=== PATIENT | female | born 1955 | race Hispanic/Latino ===

== ENCOUNTER 2017-05-13 18:07 | Observation (INO) | payer SELFPAY ==
[~2017-05-13] VITALS: Ht 165.1 cm; Wt 81.3 kg
[~2017-05-13 18:07] MED LIST: ACCUPRIL5 MG; BACTRIM DS1 TAB PO; CIPROFLOXACN500 MG PO; GLIPIZIDE10 MG PO; LISINOPRIL20 MG PO; METFORMIN500 MG PO
--- NOTE | 2017-05-13 18:08 | NUR ---
PT AMBULATED TO ER ROOM 10. CHANGED INTO GOWN. IV ESTABLISHED. EKG COMPLETE.
--- NOTE | 2017-05-13 18:45 | NUR ---
REPORT TO ADELA LINARES FOR CONTINUED CARE
--- NOTE | 2017-05-13 18:53 | NUR ---
PATIENT AMBULATES TO BATHROOM WITH STEADY GAIT. URINE SAMPLE OBTAINED. REPORTS CHEST PAIN 5/10 AT THIS TIME. FAMILY AT BEDSIDE, CALL LIGHT WITHIN REACH. INFORMED TO CALL FOR ASSISTANCE. WILL CONTINUE TO MONITOR.
[2017-05-13 19:03] LABS: HEMATOCRIT 46.8 % (37.0-47.0); HEMOGLOBIN 15.8 g/dl (12.0-16.0); IMMATURE GRANULOCYTES 0.2 % (0.0-1.0); MEAN CELL VOLUME 89.5 fL CALC (80.0-100.0); MEAN CORPUSCULAR HGB 30.2 pG CALC (26.0-32.0); MEAN CORPUSCULAR HGB CONC 33.8 g/L CALC (32.0-36.0); NEUT# 5.12 thou/uL (2.00-7.15); RED BLOOD COUNT 5.23 mill/uL (4.20-5.60)
[2017-05-13 19:16] LABS: URINE BILIRUBIN - DIPSTICK NEGATIVE (NEGATIVE); URINE BLOOD DIPSTICK NEGATIVE (NEGATIVE); URINE COLOR YELLOW; URINE GLUCOSE - DIPSTICK >=1000 mg/dL (NEGATIVE); URINE KETONE TRACE mg/dL (NEGATIVE); URINE LEUK ESTERASE NEGATIVE (NEGATIVE); URINE NITRITE - DIPSTICK NEGATIVE (Negative); URINE PROTEIN - DIPSTICK NEGATIVE (NEG-TRACE); URINE UROBILINOGEN - DIPSTICK 0.2 E.U./dL (0.2)
[2017-05-13 19:25] LABS: ALBUMIN 4.6 g/dL (3.2-5.0); ALKALINE PHOSPHATASE 151 u/l (38-126); AMYLASE 33 u/l (30-110); BUN 17 mg/dL (7-17); BUN/CREATININE RATIO 27 (12-20 (CALC)); CARBON DIOXIDE 24 mmol/l (22-30); CHLORIDE 93 mmol/l (95-108); CREATININE 0.6 mg/dL (0.5-1.0); GFR > 60 ML/MIN (>=60 (CALC)); GFR FOR AFR.AMER. > 60 ML/MIN (>=60 (CALC)); LIPASE 176 u/l (23-300); SGOT/AST 26 u/l (14-36); SGPT/ALT 31 u/l (9-52); SODIUM 135 mmol/l (137-146); TOTAL PROTEIN 7.9 g/dL (6.3-8.2)
--- NOTE | 2017-05-13 19:25 | NUR ---
BEDSIDE REPORT GIVEN TO VIJAY CRAIG. CARE RELINQUISHED.
--- NOTE | 2017-05-13 19:26 | NUR ---
IN ROOM INTRODUCED SELF TO PT. NO C/O AT THIS TIME.
[2017-05-13 19:28] LABS: ANION GAP 23 (6-22 (CALC)); POTASSIUM 5.3 mmol/l (3.5-5.1)
[2017-05-13 19:38] LABS: MYOGLOBIN 9 ng/mL (0 - 62)
[2017-05-13 19:51] LABS: URINE CLARITY CLEAR
--- NOTE | 2017-05-13 20:09 | NUR ---
IV INSULIN GIVEN PER MD ORDER.
--- NOTE | 2017-05-13 20:41 | NUR ---
Admission Note Report Given to: SHIRA LINARES Transported by: Wheelchair X Stretcher Transported with: X Nurse Transporter X Patent IV X O2 X Packaging Sales Representative
--- NOTE | 2017-05-13 20:45 | NUR ---
PT. TAKEN TO [facility] FLOOR VIA STRETCHER, IN STABLE CONDITION.
--- NOTE | 2017-05-13 20:50 | NUR ---
PT.ARRIVED TO THE FLOOR VIA STRETCHER ACCOMPANIED BY VIJAY NAGEL OF ED. PT.APPEARS TO BE IN STABLE CONDITION AT THIS TIME. PT.IS BEING ORIENTED TO ROOM,CALL SYSTEM,LIGHTS,BED AND TV. ACCU-CHECK IS 300 UPON ARRIVING TO THE FLOOR, ED REPORTS HAVING ADMINISTERED 5UN OF NOVOLOG JUST BEFORE BRINGING PT UP TO FLOOR/WILL CONTINUE TO MONITOR. PT.IS REQUSTING FOOD AT THIS TIME, STATING SHE WAS NOT FED IN THE ED AT ALL AND IS HUNGRY. V/S ARE BEING ASSESSED AT THIS TIME AND PT.ASSESSED. LUNG SOUNDS ARE CLEAR, ABD SOFT/NON-TENDER, PT.REPORTS BM YESTERDAY,BUT THAT SHE HAS BEEN HAVING DIFFICULTY WITH CONSTIPATION. NO VISIBLE WOUNDS OR EDEMA NOTED AT THIS TIME. PT.DENIES ANY WOUNDS AT THIS TIME. SON IS AT BEDSIDE AND IS INTERPRETING FOR PT. 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 PT.ALSO REPORTS HAVING WEAKNESS AND DIZZINESS RECENTLY SO SHE HAS BEEN INSTRUCTED TO CALL FOR ASSISTANCE BEFORE AMBULATING OR USING THE RESTROOM. CALL LIGHT POSITIONED AT BEDSIDE W/IN REACH ALONG W/BEDSIDE TABLE. BED IN LOWEST POSITION.
[2017-05-14 00:20] VITALS: BP 132/84
--- NOTE | 2017-05-14 00:25 | NUR ---
V/S ASSESSED AT THIS TIME, PT.C/O HEADACHE, NITRO PATCH REMOVED AND PT.INSTRUCTED TO CALL IF RAMOS DOES NOT IMPROVE OR SHE EXPERIENCES ANY CHEST PAIN. CALL LIGHT IS W/IN REACH, WILL CONTINUE TO MONITOR.
--- NOTE | 2017-05-14 02:35 | NUR ---
LOW LIGHTS ARE ON TO ROOM, PT.APPEARS TO BE SLEEPING AT THIS TIME. NO S/S OF DISTRESS. CALL LIGHT IS ON BST W/IN REACH
[2017-05-14 05:10] VITALS: BP 124/68
--- NOTE | 2017-05-14 07:00 | NUR ---
BEDSIDE REPORT RECEIVED BY BHUPENDRA. PT IS RESTING IN BED AND DENIES NEEDS AT THIS TIME. CALL LIGHT IN REACH.
--- NOTE | 2017-05-14 07:10 | NUR ---
REPORT GIVEN TO DAY NURSE, PT.IS SLEEPING W/LIGHTS OUT AT THIS TIME, AWOKE TO OUR ENTERING ROOM. CALL LIGHT IS AT BEDSIDE W/IN REACH
[2017-05-14 07:22] VITALS: BP 137/61
--- NOTE | 2017-05-14 08:03 | NUR ---
ASSESSMENT DONE AND TELE IN PLACE. RESPS EVEN AND UNLABORED. HOT PACK GIVEN TO PT FOR HER RIGHT LEG FOR COMFORT. PT DENIES NEEDS AT THIS TIME. SAFETY PRECAUTIONS REINFORCED. CALL LIGHT IN REACH.
--- NOTE | 2017-05-14 11:16 | NUR ---
NOTIFIED DR. MARTI RE: PT ACCU OF 405 AND ORDERS RECIEVED.
--- NOTE | 2017-05-14 12:00 | NUR ---
PT IS SITTING IN THE SIDE OF THE BED EATING HER LUNCH. PT DENIES NEEDS AT THIS TIME. CALL LIGHT IN REACH. FAMILY IN ROOM.
[2017-05-14 12:30] VITALS: BP 134/69
--- NOTE | 2017-05-14 16:00 | NUR ---
PT IS RESTING IN BED WITH NO S/S OF DISTRESS NOTED. PT DENIES NEEDS. PT STATED THAT SHE IS WAITING FOR DOCTOR TO COME. TOLD PT DOCTOR SHOULD BE COMING SOON. FAMILY IN ROOM.
[2017-05-14 16:20] VITALS: BP 137/84
--- NOTE | 2017-05-14 17:40 | NUR ---
DR. DESIR IN ROOM TO ASSESS PT AND ORDERS RECEIVED.
[2017-05-14 18:09] LABS: HEMATOCRIT 45.9 % (37.0-47.0); HEMOGLOBIN 15.4 g/dl (12.0-16.0); IMMATURE GRANULOCYTES 0.3 % (0.0-1.0); MEAN CELL VOLUME 89.5 fL CALC (80.0-100.0); MEAN CORPUSCULAR HGB CONC 33.6 g/L CALC (32.0-36.0); NEUT# 3.22 thou/uL (2.00-7.15); RED BLOOD COUNT 5.13 mill/uL (4.20-5.60); RED CELL DISTRI WIDTH 11.9 % (11.5-15.5)
[2017-05-14 18:52] LABS: ALBUMIN 3.9 g/dL (3.2-5.0); ALKALINE PHOSPHATASE 114 u/l (38-126); ANION GAP 17 (6-22 (CALC)); BILIRUBIN, TOTAL 0.7 mg/dL (0.0-1.4); BUN 16 mg/dL (7-17); BUN/CREATININE RATIO 36 (12-20 (CALC)); CARBON DIOXIDE 30 mmol/l (22-30); CHLORIDE 95 mmol/l (95-108); CREATININE 0.4 mg/dL (0.5-1.0); GFR > 60 ML/MIN (>=60 (CALC)); GFR FOR AFR.AMER. > 60 ML/MIN (>=60 (CALC)); POTASSIUM 4.5 mmol/l (3.5-5.1); SGOT/AST 10 u/l (14-36); SGPT/ALT 30 u/l (9-52); SODIUM 137 mmol/l (137-146); TOTAL PROTEIN 6.8 g/dL (6.3-8.2)
--- NOTE | 2017-05-14 19:07 | NUR ---
Discharge instructions given. Patient verbalizes understanding of same.
--- NOTE | 2017-05-14 19:20 | NUR ---
Discharge instructions given. Patient verbalizes understanding of same. Discharged in stable condition via Ambulatory to Home with family. All belongings sent with pt.
== END 2017-05-14 19:20 | disposition home or self-care (01) | DRG 313 ==
LOC: ED 18:07 → ED-I 19:30 → ED 20:09 → MS2 20:10
PROVIDERS: Emergency Medicine; ADMIT Hospitalist; ATTEND Hospitalist
DX: R07.89 Other chest pain (principal); E87.5 Hyperkalemia; E11.65 Type 2 diabetes mellitus with hyperglycemia; I10 Essential (primary) hypertension; Z79.82 Long term (current) use of aspirin
CPT/HCPCS: G0378

== ENCOUNTER 2017-12-20 10:53 | Emergency (ER) | payer OTHER ==
[~2017-12-20] VITALS: Ht 165.1 cm; Wt 68.2 kg
[2017-12-20] MEDS ORDERED: IBUPROFEN600 MG PO (12:35)
[2017-12-20 12:40] VITALS: BP 147/73
== END 2017-12-20 12:40 | disposition home or self-care (01) ==
LOC: ED 10:53
DX: M17.12 Unilateral primary osteoarthritis, left knee (principal); M25.562 Pain in left knee

== ENCOUNTER 2020-08-19 15:59 | Inpatient (IN) | payer MEDICARE, MEDICAID ==
[~2020-08-19] VITALS: Ht 165.1 cm; Wt 76.0 kg
[~2020-08-19 15:59] MED LIST changes: +GLIPIZIDE10 M3 PO; -GLIPIZIDE10 MG PO; +IBUPROFEN600 MG PO
[2020-08-19 17:43] LABS: URINE BILIRUBIN - DIPSTICK NEGATIVE (NEGATIVE); URINE BLOOD DIPSTICK NEGATIVE (NEGATIVE); URINE COLOR YELLOW; URINE GLUCOSE - DIPSTICK >=1000 mg/dL (NEGATIVE); URINE KETONE NEGATIVE (NEGATIVE); URINE LEUK ESTERASE NEGATIVE (NEGATIVE); URINE PH 6.5 (4.5-8.0); URINE PROTEIN - DIPSTICK TRACE mg/dL (NEG-TRACE); URINE SPECIFIC GRAVITY 1.015
[2020-08-19 17:46] LABS: HEMATOCRIT 42.8 % (37.0-47.0); HEMOGLOBIN 13.9 g/dl (12.0-16.0); IMMATURE GRANULOCYTES 0.2 % (0.0-5.0); MEAN CELL VOLUME 90.5 fL CALC (80.0-100.0); MEAN CORPUSCULAR HGB 29.4 pG CALC (26.0-32.0); MEAN CORPUSCULAR HGB CONC 32.5 g/dL CAL (32.0-36.0); NEUT# 7.43 thou/uL (2.00-7.15); RED BLOOD COUNT 4.73 mill/uL (4.20-5.60); RED CELL DISTRI WIDTH 12.8 % (11.5-15.5)
[2020-08-19 17:52] LABS: URINE NITRITE - DIPSTICK NEGATIVE (Negative)
[2020-08-19 17:59] LABS: ALBUMIN 4.3 g/dL (3.2-5.0); ALKALINE PHOSPHATASE 135 u/l (38-126); ANION GAP 17 (6-22 (CALC)); BILIRUBIN, TOTAL 0.7 mg/dL (0.0-1.4); BUN 9 mg/dL (8-23); BUN/CREATININE RATIO 18 (12-20 (CALC)); CARBON DIOXIDE 27 mmol/l (22-30); CHLORIDE 95 mmol/l (95-108); CREATININE 0.5 mg/dL (0.5-1.0); GFR > 60 ML/MIN (>=60 (CALC)); GFR FOR AFR.AMER. > 60 ML/MIN (>=60 (CALC)); POTASSIUM 4.1 mmol/l (3.5-5.1); SODIUM 135 mmol/l (137-146)
[2020-08-19 18:00] LABS: SGOT/AST 20 u/l (9-36); TOTAL PROTEIN 8.4 g/dL (6.3-8.2)
[2020-08-19 20:00] VITALS: BP 167/82
[2020-08-20] VITALS (11 sets, daily range): BP systolic 149–185; BP diastolic 66–89
[2020-08-20] MEDS ORDERED: LEVEMIR FL100 UNIT/M SC (08:55)
[2020-08-20] MEDS ORDERED: BENZONATATE200 MG PO (08:56)
[2020-08-20] MEDS ORDERED: GABAPENTIN300 M2 PO (08:58)
[2020-08-20] MEDS ORDERED: FARXIGA5 MG PO (08:59)
[2020-08-20] MEDS ORDERED: [UNRECOGNIZED DRUG - SUPPLY] (09:00)
[2020-08-20] MEDS ORDERED: LOSARTAN POTASS50 MG PO (10:29)
[2020-08-21] VITALS (7 sets, daily range): BP systolic 144–185; BP diastolic 69–88
[2020-08-21 05:00] LABS: HEMATOCRIT 39.6 % (37.0-47.0); HEMOGLOBIN 12.5 g/dl (12.0-16.0); IMMATURE GRANULOCYTES 1.8 % (0.0-5.0); MEAN CELL VOLUME 91.7 fL CALC (80.0-100.0); MEAN CORPUSCULAR HGB 28.9 pG CALC (26.0-32.0); MEAN CORPUSCULAR HGB CONC 31.6 g/dL CAL (32.0-36.0); NEUT# 8.3 thou/uL (2.00-7.15); RED BLOOD COUNT 4.32 mill/uL (4.20-5.60)
[2020-08-21 05:20] LABS: ALKALINE PHOSPHATASE 118 u/l (38-126); BILIRUBIN, TOTAL 0.5 mg/dL (0.0-1.4); BUN 7 mg/dL (8-23); BUN/CREATININE RATIO 20 (12-20 (CALC)); CHLORIDE 102 mmol/l (95-108); CREATININE 0.3 mg/dL (0.5-1.0); GFR > 60 ML/MIN (>=60 (CALC)); GFR FOR AFR.AMER. > 60 ML/MIN (>=60 (CALC)); POTASSIUM 4.1 mmol/l (3.5-5.1); SGOT/AST 18 u/l (9-36); SODIUM 134 mmol/l (137-146)
[2020-08-21 05:32] LABS: ALBUMIN 3.3 g/dL (3.2-5.0); ANION GAP 19 (6-22 (CALC)); CARBON DIOXIDE 17 mmol/l (22-30); TOTAL PROTEIN 6.4 g/dL (6.3-8.2)
[2020-08-22] VITALS (8 sets, daily range): BP systolic 118–184; BP diastolic 63–85
[2020-08-22 05:14] LABS: HEMATOCRIT 33.9 % (37.0-47.0); IMMATURE GRANULOCYTES 1.6 % (0.0-5.0); MEAN CELL VOLUME 89.9 fL CALC (80.0-100.0); MEAN CORPUSCULAR HGB 29.2 pG CALC (26.0-32.0); MEAN CORPUSCULAR HGB CONC 32.4 g/dL CAL (32.0-36.0); NEUT# 2.57 thou/uL (2.00-7.15); RED BLOOD COUNT 3.77 mill/uL (4.20-5.60); RED CELL DISTRI WIDTH 12.9 % (11.5-15.5)
[2020-08-22 05:29] LABS: ALBUMIN 2.9 g/dL (3.2-5.0); ALKALINE PHOSPHATASE 94 u/l (38-126); BILIRUBIN, TOTAL 0.3 mg/dL (0.0-1.4); BUN 10 mg/dL (8-23); BUN/CREATININE RATIO 28 (12-20 (CALC)); CHLORIDE 102 mmol/l (95-108); CREATININE 0.4 mg/dL (0.5-1.0); GFR > 60 ML/MIN (>=60 (CALC)); GFR FOR AFR.AMER. > 60 ML/MIN (>=60 (CALC)); POTASSIUM 3.5 mmol/l (3.5-5.1); SGOT/AST 19 u/l (9-36); SODIUM 134 mmol/l (137-146); TOTAL PROTEIN 5.9 g/dL (6.3-8.2)
[2020-08-22 05:31] LABS: ANION GAP 10 (6-22 (CALC)); CARBON DIOXIDE 26 mmol/l (22-30)
[2020-08-23] VITALS (8 sets, daily range): BP systolic 142–187; BP diastolic 56–79
[2020-08-23 05:39] LABS: HEMATOCRIT 37.9 % (37.0-47.0); HEMOGLOBIN 12.2 g/dl (12.0-16.0); IMMATURE GRANULOCYTES 1.3 % (0.0-5.0); MEAN CELL VOLUME 89.8 fL CALC (80.0-100.0); MEAN CORPUSCULAR HGB 28.9 pG CALC (26.0-32.0); MEAN CORPUSCULAR HGB CONC 32.2 g/dL CAL (32.0-36.0); NEUT# 2.32 thou/uL (2.00-7.15); RED BLOOD COUNT 4.22 mill/uL (4.20-5.60)
[2020-08-23 05:47] LABS: ALBUMIN 3.4 g/dL (3.2-5.0); ALKALINE PHOSPHATASE 101 u/l (38-126); ANION GAP 13 (6-22 (CALC)); BILIRUBIN, TOTAL 0.3 mg/dL (0.0-1.4); BUN 9 mg/dL (8-23); BUN/CREATININE RATIO 29 (12-20 (CALC)); C-REACTIVE PROTEIN 4.9 mg/dL (0-0.9); CARBON DIOXIDE 28 mmol/l (22-30); CHLORIDE 100 mmol/l (95-108); CREATININE 0.3 mg/dL (0.5-1.0); GFR > 60 ML/MIN (>=60 (CALC)); GFR FOR AFR.AMER. > 60 ML/MIN (>=60 (CALC)); SGOT/AST 18 u/l (9-36); SODIUM 137 mmol/l (137-146); TOTAL PROTEIN 6.6 g/dL (6.3-8.2)
[2020-08-24] VITALS (8 sets, daily range): BP systolic 135–184; BP diastolic 58–86
[2020-08-25 03:49] VITALS: BP 140/70
[2020-08-25 05:58] LABS: HEMATOCRIT 34.5 % (37.0-47.0); HEMOGLOBIN 11.4 g/dl (12.0-16.0); IMMATURE GRANULOCYTES 1.7 % (0.0-5.0); MEAN CELL VOLUME 89.8 fL CALC (80.0-100.0); MEAN CORPUSCULAR HGB 29.7 pG CALC (26.0-32.0); NEUT# 2.16 thou/uL (2.00-7.15); RED BLOOD COUNT 3.84 mill/uL (4.20-5.60); RED CELL DISTRI WIDTH 13.2 % (11.5-15.5)
[2020-08-25 06:10] LABS: ANION GAP 11 (6-22 (CALC)); BUN 11 mg/dL (8-23); BUN/CREATININE RATIO 30 (12-20 (CALC)); CARBON DIOXIDE 27 mmol/l (22-30); CHLORIDE 100 mmol/l (95-108); CREATININE 0.4 mg/dL (0.5-1.0); GFR > 60 ML/MIN (>=60 (CALC)); GFR FOR AFR.AMER. > 60 ML/MIN (>=60 (CALC)); SODIUM 134 mmol/l (137-146)
[2020-08-25 08:15] VITALS: BP 189/75
[2020-08-25 12:00] VITALS: BP 165/75
[2020-08-25] MEDS ORDERED: LEVAQUIN750 M1 PO (12:28)
[2020-08-25] MEDS ORDERED: NORVASC10 M1 PO (12:36)
[2020-08-25 16:22] VITALS: BP 168/60
== END 2020-08-25 16:55 | disposition home or self-care (01) | DRG 179 ==
LOC: ED 15:59 → ED-I 17:12 → ED 18:39 → MS2 18:40
PROVIDERS: Emergency Medicine; Internal Medicine; Nurse Practitioner; ADMIT Internal Medicine; ATTEND Internal Medicine
DX: J15.1 Pneumonia due to Pseudomonas (principal); R09.02 Hypoxemia; J98.4 Other disorders of lung; I10 Essential (primary) hypertension; E11.9 Type 2 diabetes mellitus without complications; Z79.84 Long term (current) use of oral hypoglycemic drugs; Z20.822 Contact with and (suspected) exposure to COVID-19
CPT/HCPCS: Q3014; Q9967

== ENCOUNTER 2023-10-28 10:28 | Emergency (ER) | payer MEDICARE, MEDICAID ==
[~2023-10-28] VITALS: Ht 165.1 cm; Wt 70.5 kg
[2023-10-28] VITALS (18 sets, daily range): BP systolic 143–177; BP diastolic 66–83
[~2023-10-28 10:28] MED LIST changes: +BENZONATATE200 MG PO; +FARXIGA5 MG PO; +GABAPENTIN300 M2 PO; +LEVAQUIN750 M1 PO; +LEVEMIR FL100 UNIT/M SC; +LOSARTAN POTASS50 MG PO; +NORVASC10 M1 PO; +[UNRECOGNIZED DRUG - SUPPLY]
[2023-10-28 11:39] LABS: BASO% 0.3 % (0-3); EOS% 2.1 % (0-8); HEMATOCRIT 35.8 % (37.0-47.0); IMMATURE GRANULOCYTES 0.3 % (0.0-5.0); LYMPH% 33.5 % (15-41); MEAN CELL VOLUME 90.9 fL CALC (80.0-100.0); MEAN CORPUSCULAR HGB 30.5 pG CALC (26.0-32.0); MEAN CORPUSCULAR HGB CONC 33.5 g/dL CAL (32.0-36.0); MONO% 7.6 % (2-13); NEUT# 3.77 thou/uL (2.00-7.15); NEUT% 56.2 % (42-76); RED BLOOD COUNT 3.94 mill/uL (4.20-5.60); RED CELL DISTRI WIDTH 12.5 % (11.5-15.5)
[2023-10-28 12:01] LABS: CREATININE 0.9 mg/dL (0.5-1.0); POTASSIUM 4.1 mmol/l (3.5-5.1)
[2023-10-28 12:03] LABS: ALBUMIN 4.1 g/dL (3.2-5.0); BILIRUBIN, TOTAL 0.6 mg/dL (0.02-1.3)
[2023-10-28] MEDS ORDERED: ONDANSETRON HCl 4 MG/2 ML SDV IV ONE (13:20)
[2023-10-28] MEDS ORDERED: KETOROLAC TROMETHAMINE 30 MG/ML SDV IV ONE (13:20)
[2023-10-28 13:57] LABS: URINE BILIRUBIN - DIPSTICK Negative (NEGATIVE); URINE BLOOD DIPSTICK Negative (NEGATIVE); URINE GLUCOSE - DIPSTICK Negative (NEGATIVE); URINE KETONE Negative (NEGATIVE); URINE LEUK ESTERASE Negative (NEGATIVE); URINE NITRITE - DIPSTICK Negative (Negative); URINE PROTEIN - DIPSTICK Negative (NEG-TRACE); URINE UROBILINOGEN - DIPSTICK 0.2 E.U./dL (0.2)
[2023-10-28 13:59] LABS: URINE COLOR Yellow
== END 2023-10-28 16:34 | disposition home or self-care (01) ==
LOC: ED 10:28
PROVIDERS: Family Medicine
DX: E87.1 Hypo-osmolality and hyponatremia (principal); R10.31 Right lower quadrant pain; R10.32 Left lower quadrant pain; E11.42 Type 2 diabetes mellitus with diabetic polyneuropathy; I10 Essential (primary) hypertension; Z79.84 Long term (current) use of oral hypoglycemic drugs; Z79.4 Long term (current) use of insulin
CPT/HCPCS: Q9967